=== PATIENT | male | born 1960 | race American Indian/Alaskan Native ===

== ENCOUNTER 2016-12-06 15:14 | Emergency (ER) | payer OTHER ==
[2016-12-06 15:24] VITALS: BP 119/74; PULSE 69; RESP 18; TEMP 97.9
[2016-12-06] MEDS ORDERED: DIPH,PERTUS(ACELL)TETVAC-LF 0.5 ML VIAL IM ONE (15:35)
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
== END 2016-12-06 17:01 | disposition home or self-care (01) ==
LOC: EC 15:14
DX: S81.811A Laceration without foreign body, right lower leg, initial encounter (principal); Z23 Encounter for immunization; Z87.891 Personal history of nicotine dependence; W20.8XXA Other cause of strike by thrown, projected or falling object, initial encounter
CPT/HCPCS: 90471; 90715; 99282

== ENCOUNTER 2016-12-07 13:11 | Emergency (ER) | payer OTHER ==
[2016-12-07 13:31] VITALS: BP 100/70; PULSE 82; RESP 18; TEMP 98
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
== END 2016-12-07 14:15 | disposition home or self-care (01) ==
LOC: EC 13:11
DX: S81.811D Laceration without foreign body, right lower leg, subsequent encounter (principal); Z87.891 Personal history of nicotine dependence; Y92.89 Other specified places as the place of occurrence of the external cause
CPT/HCPCS: 99282

== ENCOUNTER 2016-12-23 12:35 | Emergency (ER) | payer OTHER ==
[2016-12-23 12:51] VITALS: BP 118/66; PULSE 69; RESP 18; TEMP 98.3
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
== END 2016-12-23 13:51 | disposition home or self-care (01) ==
LOC: EC 12:35
DX: S80.811D Abrasion, right lower leg, subsequent encounter (principal); L08.9 Local infection of the skin and subcutaneous tissue, unspecified; Z87.891 Personal history of nicotine dependence; W39.XXXD Discharge of firework, subsequent encounter
CPT/HCPCS: 99283